=== PATIENT | male | born 1950 | race Caucasian/White ===

== ENCOUNTER → 2016-10-22 | Outpatient (CLI) | payer MEDICARE ==
[~2016-10-22] MED LIST: AMIODARONE200 MG PO; AMITRIPTYLINE10 MG PO; CHEWABLE ASPIRI81 MG PO; CIPRO 500MG TA500 MG PO; CLOPIDOGREL75 MG PO; COREG 6.25MG6.25 MG PO; COREG3.125 MG PO; ENDOCET 325 MG-1 TAB PO; FLAGYL ER750 MG PO; FLOMAX0.4 MG PO; GLIMEPIRIDE 4MG4 MG PO; Isosorbide Mono30 MG PO; JANUVIA50 MG PO; KEFLEX 500MG.500 MG PO; LASIX 20MG. TAB20 MG PO; LASIX20 MG PO; LORTAB 500 MG-11 TAB PO; LOSARTAN POTASS50 MG PO; METFORMIN1000 MG PO; MICARDIS20 MG PO; MICARDIS40 MG PO; NEURONTIN 300M300 MG PO; NITROGLYCERIN0.4 MG SL; PHENERGAN 25MG.25 M1 PO; PLAVIX75 MG PO; PRILOSEC20 M1 PO; Prilosec20 MG PO; SIMVASTATIN80 MG PO; SYNTHROID0.088 MG PO; TRAMADOL 50MG T50 MG PO
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
== END ==
LOC: RAD 14:36
DX: S29.8XXA Other specified injuries of thorax, initial encounter (principal)

== ENCOUNTER → 2017-05-03 | Outpatient (CLI) | payer MEDICARE ==
[2017-05-03 14:53] LABS: BUN 10 mg/dL (7-18)
[2017-05-03 15:11] LABS: GFR (ESTIMATED) 61 ML/MIN (>60)
== END ==
LOC: LAB 13:56
PROVIDERS: Emergency Medicine
DX: E11.9 Type 2 diabetes mellitus without complications (principal)

== ENCOUNTER → 2017-06-14 | Day surgery (SDC) | payer MEDICARE ==
[~2017-06-14] VITALS: Ht 180.3 cm; Wt 105.2 kg
[2017-06-14 09:10] VITALS: BP 163/82
[2017-06-14 09:26] VITALS: BP 151/69
[2017-06-14 09:27] VITALS: BP 151/69
--- NOTE | 2017-06-14 09:34 | Procedure Note ---
Procedure detail Date of procedure: 06/14/17 Anesthesiologist: Mark Ferrari M.D. 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 He presents with some increasing LEFT shoulder pain. He has had previous medial branch blocks with good relief of his neck pain. He has previously had surgery on his RIGHT shoulder. He has not had any surgical intervention to his LEFT shoulder. We will do a LEFT shoulder intra-articular injection today to see if this will give him some relief. Procedure detail: LEFT shoulder intra-articular injection Informed consent was obtained and the risk and benefits of the procedure was explained to the patient. The patient was taken to the procedure room. The LEFT shoulder was prepped using ChloraPrep. A 25-gauge needle was used we injected 10 mL bupivacaine 0.25 percent and Depo-Medrol 40 mg into the LEFT shoulder joint anteriorly and posteriorly. The patient tolerated the procedure well with no complications. Plan and disposition: We will follow-up with this patient in 2 weeks. We will reevaluate his symptoms at that time. at [id number]
[2017-06-14 09:37] VITALS: BP 151/69
== END ==
LOC: PM 08:54
PROC: 3E0U3BZ Introduction of Anesthetic Agent into Joints, Percutaneous Approach (ICD-10-PCS; principal; 2017-06-14)
PROC: 3E0U33Z Introduction of Anti-inflammatory into Joints, Percutaneous Approach (ICD-10-PCS; 2017-06-14)
DX: M19.012 Primary osteoarthritis, left shoulder (principal)
CPT/HCPCS: J1030

== ENCOUNTER → 2017-08-02 | Outpatient (CLI) | payer MEDICARE ==
[~2017-08-02] MED LIST changes: +PERCOCET1 TA1 PO
[2017-08-02 13:11] LABS: LYMPH # 2.7 K/mm3 (0.7-4.5); LYMPH % 34.1 % (10-50)
[2017-08-02 14:02] LABS: BUN 10 mg/dL (7-18)
[2017-08-02 14:07] LABS: GFR (ESTIMATED) 75 ML/MIN (>60)
== END ==
LOC: LAB 12:17
PROVIDERS: Emergency Medicine
DX: E11.9 Type 2 diabetes mellitus without complications (principal); E03.9 Hypothyroidism, unspecified; E55.9 Vitamin D deficiency, unspecified